=== PATIENT | female | born 1980 | race Caucasian/White ===

== ENCOUNTER 2016-05-04 16:26 | Emergency (ER) | payer OTHER ==
[~2016-05-04] VITALS: Ht 175.3 cm; Wt 111.1 kg
[~2016-05-04 16:26] MED LIST: DIFLUCAN150 M1 PO; DOXYCYCLINE HY100 M4 PO; FERRALET 901 TAB PO; FLEXERIL10 MG PO; IBUPROFEN800 MG PO; PERCOCET 325 MG1 TA2 PO; PRENATAL1 TA1 PO; TYLENOL #31 TAB PO
[2016-05-04 16:35] VITALS: BP 121/76
== END 2016-05-04 17:52 | disposition admitted as inpatient to this hospital (09) ==
LOC: ERH 16:26
DX: S61.210A Laceration without foreign body of right index finger without damage to nail, initial encounter (principal)

== ENCOUNTER 2016-06-15 00:43 | Emergency (ER) | payer OTHER ==
[~2016-06-15] VITALS: Ht 175.3 cm; Wt 111.1 kg
[2016-06-15 01:13] VITALS: BP 115/76
--- NOTE | 2016-06-15 01:24 | ED GI/GU/ABDOMINAL COMPLAINT ---
History of Present Illness General Chief Complaint: Abdominal Pain/Flank Pain Stated Complaint: ABD PAIN AND NAUSEA Source: patient Exam Limitations: no limitations Vital Signs & Intake/Output Vital Signs & Intake/Output Vital Signs Date Time Temp Pulse Resp B/P Pulse O2 O2 Flow FiO2 Ox Delivery Rate 06/15 0113 96.8 76 18 115/76 95 Room Air Allergies Coded Allergies: Penicillins (UNKNOWN 06/15/16) Reconcile Medications CYCLOBENZAPRINE HCL (Flexeril) 10 MG TAB 1 TAB PO TID PRN MUSCLE SPASMS Avoid operating motor vehicle or heavy machinery Doxycycline Hyclate 100 MG TABLET 1 TAB PO BID pelvic infection Fluconazole (Diflucan) 150 MG TABLET 1 TAB PO ONCE yeast infection take second tab in 72 hours Ibuprofen 800 MG TABLET 800 MG PO Q6P PRN PAIN SCALE 4-6 OXYCODONE HCL/ACETAMINOPHEN (Percocet 5-325 MG Tablet) 325 MG/5 MG TAB 1 TAB PO Q4P PRN PAIN Triage Note: PT TO ED. STATES THAT HER OFFICE MACHINE SERVICER STATED THAT SHE HAS NEISSERIA GONORRHOEAE AND PT WAS DIRECTED VIA OFFICE MACHINE SERVICER TO COME TO ED TO GET A SHOT. Triage Nurses Notes Reviewed? yes ? N Is pt currently ? No Onset: Abrupt Duration: day(s): (1) Location: MILD DISCHARGE Radiation: no radiation Activities at Onset: UNPROTECTED INTERCOURSE No Modifying Factors: none HPI: 36 year old female presents requesting treatment for gonorrhea. She complains of feelign nausea, abdominal pain. She denies and fever or discharge. She was tested by her energy efficiency specialist doctor and got positive results for gonorrhea. Negative for chlamydia. SHe reports she just got back together with her current partner and he told her to go get tested. Past History Travel History Traveled to [place] past 21 day No Medical History Any Pertinent Medical History? see below for history OFFICE MACHINE SERVICER/Reproductive: ROSALINDA RING Pneumonia Vaccine: 12/20/13 Surgical History Surgical History: gastric sleeve Psychosocial History What is your primary language Welsh Tobacco Use: Current Daily Use Daily Tobacco Use Amount/Type: => 5 Cigarettes daily ETOH Use: denies use Illicit Drug Use: denies illicit drug use Family History Hx Contributory? No Review of Systems Review of Systems Constitutional: Denies: chills, fever. EENTM: Reports: no symptoms. Respiratory: Reports: no symptoms. Cardiovascular: Reports: no symptoms. GI: Denies: abdominal pain, vomiting. Genitourinary: Reports: discharge. Denies: dysuria, frequency, hematuria, hesitation. Musculoskeletal: Reports: no symptoms. Skin: Reports: no symptoms. Neurological/Psychological: Reports: no symptoms. Hematologic/Endocrine: Denies: bruising, bleeding, polyuria, polydipsia. Immunologic/Allergic: Denies: splenectomy. All Other Systems: Reviewed and Negative Physical Exam Physical Exam General Appearance: well developed/nourished, alert, awake, anxious Head: atraumatic, normal appearance Eyes: Bilateral: normal appearance, PERRL, EOMI. Ears, Nose, Throat, Mouth: hearing grossly normal, moist mucous membrane Neck: normal inspection, supple, full range of motion Respiratory: normal breath sounds, chest non-tender, no respiratory distress Cardiovascular: regular rate/rhythm Peripheral Pulses: 2+ radial (R), 2+ radial (L) Gastrointestinal: normal bowel sounds, soft, non-tender Neurologic/Psych: no motor/sensory deficits, awake, alert, oriented x 3 Core Measures ACS in differential dx? No Severe Sepsis Present: No Septic Shock Present: No Progress Differential Diagnosis: GONORRHEA Plan of Care: Current Medications Sig/Karan Start time Last Medication Dose Stop Time Status Admin Ceftriaxone Sodium 250 MG ONCE ONE 06/15 0130 UNir (Rocephin) 06/15 0131 Initial ED EKG: none Departure Departure Disposition: HOME OR SELF CARE Condition: Stable Clinical Impression Primary Impression: Gonorrhea Referrals: NATALIIA CURRIE MD (PCP/Family) Additional Instructions: Safe sex practices as discussed and follow up with your energy efficiency specialist doctor in the office. Return as needed. Departure Forms: Customer Survey General Discharge Information
== END 2016-06-15 01:50 ==
LOC: ERH 00:43
DX: A54.9 Gonococcal infection, unspecified (principal)
CPT/HCPCS: 96372; J0696

== ENCOUNTER 2016-09-25 15:48 | Emergency (ER) | payer OTHER ==
[~2016-09-25] VITALS: Ht 175.3 cm; Wt 102.1 kg
--- NOTE | 2016-09-25 16:40 | ED GENERAL ADULT ---
History of Present Illness General Chief Complaint: Allergy Symptoms Stated Complaint: MED RX,RASH Source: patient Exam Limitations: no limitations Vital Signs & Intake/Output Vital Signs & Intake/Output Vital Signs Date Time Temp Pulse Resp B/P B/P Pulse O2 O2 Flow FiO2 Mean Ox Delivery Rate 09/25 1806 98.2 88 17 130/82 96 Room Air 09/25 1633 Room Air 09/25 1608 98.7 97 16 138/84 97 Room Air Allergies Coded Allergies: Penicillins (RASH 09/25/16) Reconcile Medications Amoxicillin/Clavulanate Potass (Amox-Clav 875-125 MG Tablet) 875 MG-125 MG TABLET 1 TAB PO BID ANTIBIOTIC (Reported) Clindamycin HCl (Cleocin HCl) 300 MG CAPSULE 1 CAP PO TID cellulitis Fluconazole (Diflucan) 150 MG TABLET 1 TAB PO ONCE yeast infection take second tab in 72 hours Triage Note: TRIAGE: C/O PAIN TO SPOT ON L CHIN THAT SHE THOUGHT WAS ZIT 3 DAYS AGO, APPLIED TOOTHPASTE AND NOW WORSENED SWELLING, WARMTH AND ERYTHEMA. WENT TO WALK IN WHO TOLD HER IT WAS CELLULITIS AND PRESCRIBED AUGMENTIN, TOOK ONE DOSE AND NOW HAS RASH TO ENTIRE BODY. ARRIVES WITH RED, SWOLLEN ?ABSCESS TO L CHIN, NOW SPREADING UP FACE INTO JAW. TOOK TYLENOL 3 HOURS AGO WITH NO IMPROVEMENT, UNABLE TO TAKE MOTRIN DUE TO GASTRIC SLEEVE. AFEBRILE IN TRIAGE. Triage Nurses Notes Reviewed? yes Onset: Gradual Duration: day(s): Timing: recent history Severity: severe No Modifying Factors: none : No Patient currently breastfeeds: No HPI: 36yo female presents to ED complaining of painful rash on chin. Patient states that 3 days ago she saw what she thought was a pimple on her chin. She applied tootchpaste and the next day the rash had worsened, increased pain and redness. She was unable to seek medical care yesterday however today she was seen at an urgent care and given Augmentin for cellulitis. The patient has a PCN allergy from childhood, unknown reaction. She took one dose of augmentin and developed a diffuse erythematous itchy rash within 1-2 hours. Rash is located on both arms and bilateral legs. She has not taken any medication for her rash, she took tylenol at home for her pain earlier today. She is also complaining of headache and left ear pain beginning today. She denies nausea, vomiting, fevers, chills, abdominal pain, chest pain, dyspnea. (CHESTER LEE PA-C) Past History Travel History Traveled to [place] past 21 day No Medical History Any Pertinent Medical History? see below for history Neurological: NONE EENT: NONE Cardiovascular: NONE Respiratory: NONE Gastrointestinal: GASTRIC SLEEVE Hepatic: NONE Renal: NONE Musculoskeletal: NONE Psychiatric: NONE Endocrine: NONE Blood Disorders: NONE Cancer(s): NONE PERSONAL CARE AID/Reproductive: TUBAL LIGATION Surgical History Surgical History: gastric sleeve Psychosocial History What is your primary language Belizean Tobacco Use: Never used Family History Hx Contributory? No (CHESTER LEE PA-C) Review of Systems Review of Systems Constitutional: Reports: no symptoms. EENTM: Reports: see HPI. Respiratory: Reports: no symptoms. Cardiovascular: Reports: no symptoms. GI: Reports: no symptoms. Genitourinary: Reports: no symptoms. Musculoskeletal: Reports: no symptoms. Skin: Reports: see HPI. Neurological/Psychological: Reports: see HPI. Hematologic/Endocrine: Reports: no symptoms. Immunologic/Allergic: Reports: no symptoms. All Other Systems: Reviewed and Negative (CHESTER LEE PA-C) Physical Exam Physical Exam General Appearance: well developed/nourished, no apparent distress, alert, awake Head: atraumatic, normal appearance Eyes: Bilateral: normal appearance, PERRL, EOMI. Ears, Nose, Throat: normal pharynx, normal ENT inspection, hearing grossly normal, gingival tenderness Neck: supple, full range of motion, tenderness to palpation of anterior chin and neck, erythema on chin Respiratory: normal breath sounds, no respiratory distress, lungs clear Cardiovascular: regular rate/rhythm Back: normal inspection, normal range of motion Extremities: normal range of motion, no edema, erythematous macular blanchable rash on bilateral upper and lower extremities Neurologic/Psych: awake, alert, oriented x 3 Skin: erythema, warmth, tenderness, and swelling of chin with 1x1cm area of scaling centrally, erythematous macular rash on bilateral upper and lower extremities, blanchable Core Measures ACS in differential dx? No CVA/TIA Diagnosis: No Severe Sepsis Present: No Septic Shock Present: No (CHESTER LEE PA-C) Progress Differential Diagnoses I considered the following diagnoses in my evaluation of the patient: [ cellulitis, abscess, anaphylaxis, hives, angioedema] Plan of Care: Current Medications Sig/Karan Start time Last Medication Dose Stop Time Status Admin Ibuprofen 200 MG ONCE ONE 09/25 1600 CAN (Motrin UD) 09/25 1601 No swelling of lips, tongue, digits on exam. Hives present on extremities developed 1-2 hrs following one dose of Augmentin. Patient given IV benadryl, pepsid, and solumedrol for her allergy symptoms. Patient discussed with Dr. Weston, patient evaluated by Dr. Weston at bedside. Wound aspirated, no pus or drainage. Patient's headache improved following IV toradol. Patient is non toxic appearing, her vital signs are stable. Her hives have improved in appearance since IV medication. She will take Clindamycin for cellulitis and follow up for wound check in 2 days. The patient is in agreement with the plan of care. (CHESTER LEE PA-C) Initial ED EKG: normal intervals (CHESTER LEE PA-C) Departure Departure Disposition: HOME OR SELF CARE Condition: Stable Clinical Impression Primary Impression: Cellulitis Secondary Impressions: Allergic reaction to Augmentin, Hives Referrals: NATALIIA CURRIE MD (PCP/Family) Additional Instructions: Take full course of antibiotics. Take tylenol or motrin as prescribed for pain. Follow up with your Primary care doctor or return here in 2 days for wound check. Return with worsening symptoms or concerns. Departure Forms: Customer Survey General Discharge Information Prescriptions: Current Visit Scripts Clindamycin HCl (Cleocin HCl) 1 CAP PO TID #30 CAP (CHESTER LEE PA-C) PA/HORSE TRADER Co-Sign Statement Statement: ED Attending supervision documentation- [] I saw and evaluated the patient. I have also reviewed all the pertinent lab results and diagnostic results. I agree with the findings and the plan of care as documented in the PA's/HORSE TRADER's documentation. [X] I have reviewed the ED Record and agree with the PA's/HORSE TRADER's documentation. [] Additions or exceptions (if any) to the PAs/HORSE TRADER's note and plan are summarized below: [] (CARMEN CARDOSO,JAVON) Critical Care Note Critical Care Note Critical Care Time: non-applicable (CHESTER LEE PA-C)
[2016-09-25] MEDS ORDERED: AMOX-CLAV 875-1 EACH PO (16:55)
[2016-09-25 18:06] VITALS: BP 130/82
[2016-09-25] MEDS ORDERED: CLEOCIN HCL300 M1 PO (18:39)
== END 2016-09-25 18:50 ==
LOC: ERH 15:48
DX: T36.0X5A Adverse effect of penicillins, initial encounter (principal); L50.0 Allergic urticaria; L03.90 Cellulitis, unspecified
CPT/HCPCS: 96374; 96375; J1200; J1885; J2930